=== PATIENT | female | born 1955 | race Caucasian/White ===

== ENCOUNTER → 2018-02-27 09:20 | Outpatient (CLI) | payer OTHER ==
--- NOTE | ~2018-02-27 | EC ---
PATIENT:HERMINIA MOJICA DATE OF SERVICE: 02/27/18 SEX: F MEDICAL RECORD: [id number] DATE OF : 59 LOCATION:D.[facility] AGE OF PATIENT: 63 ADMISSION DATE: 02/27/18 REFERRING PHYSICIAN: INTERPRETING PHYSICIAN: TODD OSWALD MD ECHOCARDIOGRAM REPORT ECHO CHARGES 4 ECHO COMPLETE Date: 02/27 CLINICAL DIAGNOSIS: EDEMA/DIZZINESS/DYSPNEA ECHOCARDIOGRAPHIC MEASUREMENTS (adult normal given) AC root (d.<3.7cm) 2.6 cm LV Septum d (<1.2 cm> 1.2 cm Valve Excursion 1.7 cm LV Septum (systole) 1.7 cm Left Atria (s.<4.0cm> 2.5 cm LVPW d(<1.2cm) 1.2 cm RV (d.<2.3cm) 2.3 cm LVPW (sytole) 1.6 cm LV diastole(<5.6CM) 4.0 cm MV E-F(>70mm/sec) cm LV systole 2.3 cm LVOT Diameter 1.7 cm MV exc.(>10mm) cm Est.ejection fraction (50-75%) % DOPPLER: LVIT cm/sec A 64.0 cm/sec E 71.0 cm/sec LA cm/sec RVSP 27.0 mmHg LVOT 120 cm/sec AOP1/2T m/s Asc. Ao 134 cm/sec RVOT 64.0 cm/sec RA cm/sec PA 76.0 cm/sec AV Gradient Peak 7.2 mmHg AV Mean 3.7 mmHg AV Area 1.6 cm MV Gradient Peak 2.6 mmHg MV Mean 0.92 mmHg MV Area cm COMMENTS: Business Intelligence Director: 1 [employer] CH[employer] Technology Sales Consultant: 3 Dr. Schmidt TAPE# PACS Pericardial Effusion N DATE OF SERVICE: Adequate 2D, color flow, spectral Doppler and M-mode. Borderline LVH. LV internal dimension is normal, wall motion normal. EF is greater than or equal to 55%. Aortic valve is tricuspid. No evidence of stenosis by Doppler interrogation. Left atrium is normal 3.5 cm. Mitral valve showed no prolapse. Trace MR. Right-sided chambers grossly normal. Trace TR. TRANSINT:[id number] Voice Confirmation ID: [id number] DOCUMENT ID: [id number] ECHOCARDIOGRAM REPORT [id number] MOJICAHERMINIA GREGORY A MD at 1449 CC: [id number] DICTATION DATE: 03/02/18 1353 ELECTRICIAN SUBSTATION SUPERVISOR: 03/02/18 1407 DEP CLI 02/27/18 [id number] [place] [address]
== END | disposition home or self-care (01) ==
LOC: D.ECHO 09:20
DX: R06.02 Shortness of breath (principal); R60.9 Edema, unspecified

== ENCOUNTER 2018-06-18 10:16 | Outpatient (CLI) | payer OTHER | END 2018-06-18 23:59 | disposition home or self-care (01) | LOC: D.MAMMO 10:16 | DX: Z12.31 Encounter for screening mammogram for malignant neoplasm of breast (principal) ==

== ENCOUNTER → 2018-07-23 13:33 | Outpatient (CLI) | payer OTHER | END | disposition home or self-care (01) | LOC: D.RT 13:33 | DX: R06.09 Other forms of dyspnea (principal); Z87.09 Personal history of other diseases of the respiratory system; J67.9 Hypersensitivity pneumonitis due to unspecified organic dust ==